=== PATIENT | male | born 1970 | race Caucasian/White ===

== ENCOUNTER → 2019-01-17 | Outpatient (CLI) | payer BC ==
[~2019-01-17] MED LIST: GADOBENATE DIMEGLUMINE 1 ML IV ONE; LEVOTHYROXINE100 MC1; LEVOTHYROXINE100 MCG PO; SODIUM CHLORIDE 0.9% 100 ML 100 ML ONE
--- NOTE | 2019-01-18 08:50 | Diagnostic Imaging Report ---
MRI ABDOMEN Indication: Abdominal pain just above the umbilicus for approximately 5 years Technique: Multiplanar, multi-sequential MRI was performed both before and after the intravenous administration of 20 cc of gadolinium. Comparison: None Findings: Liver: Normal T1 and T2 signal. No evidence of mass. Gallbladder: Present and appears normal. Biliary tree: No intrahepatic or extrahepatic biliary ductal dilatation. The biliary tree is normal in morphology. Pancreas: T1 and T2 signal. There is blooming artifact in the inferior head measuring 11 mm without correlate on the T2-weighted sequences (series 3, image 48). This may represent a focus of air. A high T2 signal lesion in the head/genu of the pancreas measures 7 mm and is visible only on the coronal T2-weighted sequences (series 7). The pancreas parenchyma enhances normally. No ductal dilatation. Spleen: Normal size and signal. No mass Adrenal glands: No mass Kidneys: No hydronephrosis. Symmetric enhancement of the renal parenchyma. No evidence of mass Lymph nodes: No enlarged abdominal or retroperitoneal lymph nodes. Bowel: Stomach and visualized portions of the small bowel and large bowel are normal in diameter with normal wall thickness. Tiny amount of blooming artifact in the second portion of the duodenum at the ampulla suggestive of air. The appendix is normal. Pelvis: Visualized pelvic organs are normal. Vascular: Widely patent and normal in morphology. No free fluid fluid collection. Lung bases: Clear. Soft tissues: No evidence of mass or hernia. Visualized periumbilical structures are normal. Bones: Normal marrow signal. No focal osseous lesions. IMPRESSION: 1. No mass, hernia, or other abnormality in the abdominal wall to explain periumbilical pain. 2. 7 mm high T2 signal lesion and 11 mm focus of blooming artifact in the pancreas head. These may be related to the bowel, within the pancreas, or artifactual. Consider further evaluation with CT of the pancreas. The remainder of the visualized structures are normal. Signed by: Dr. Ayo Mendoza MD on 01/18/2019 8:47 AM
== END ==
LOC: MRI 09:39
PROVIDERS: ATTEND Surgery
DX: R10.9 Unspecified abdominal pain (principal)
CPT/HCPCS: 74183; A9577